=== PATIENT | male | born 1970 | race African-American/Black ===

== ENCOUNTER 2016-07-28 16:12 | Inpatient (IN) | payer BC, MEDICAID ==
[~2016-07-28 16:12] MED LIST: ACETAMINOPHEN500 M4 PO; ACYCLOVIR800 MG PO; ALLOPURINOL300 MG PO; AMBIEN5 MG PO; COLACE-T100 MG PO; COLACE100 MG PO; COMPAZINE10 M PO; DIFLUCAN100 MG PO; ENSURE HIGH PR237 ML PO; HYDROCODON-ACE1 EA16 PO; INDERAL10 MG PO; LASIX40 MG PO; LOSARTAN-HCTZ1 EAC4 PO; MIRALAX17 G1 PO; OXYCODONE HCL5 MG PO; REGLAN10 M1 PO; RITUXAN100 MG/10; TUSSIN100 MG/52 PO; VENTOLIN HFA18 G1 IH; XANAX0.5 M1 PO; ZESTRIL5 MG PO; ZOFRAN8 M1 PO; ZOFRAN8 MG PO; [UNRECOGNIZED DRUG - OTHER] PO
[2016-07-28] MEDS ORDERED: FLOMAX0.4 M1 PO (16:59)
[2016-07-28 17:04] LABS: INR 1.4 INR (0.9-1.1); PROTHROMBIN TIME 16.4 SECONDS (9.0-13.6)
[2016-07-28 17:04] LABS: BASO % 0.6 % (0-2); EOSINOPHIL ABSOLUTE COUNT 0.1 tho/cmm (0.0-0.7); HCT-HEMATOCRIT 25.5 % (36.0-53.5); HGB-HEMOGLOBIN 8.6 gm/dl (13.5-17.0); IMMATURE GRANULOCYTES ABSOLUTE 0.02 tho/cmm (0-0.03); IMMATURE GRANULOCYTES PERCENT 1.2 % (0-0.3); LYMPH % 19.3 % (20-45); LYMPH ABSOLUTE COUNT 0.3 tho/cmm (0.8-4.5); MCH (MEAN CORPUSCULAR HGB) 30.7 pg (28.0-32.0); MCHC MEAN CORPUSCULAR HGB CONC 33.7 % (32.0-36.0); MCV (MEAN CELL VOLUME) 91.1 fl (82.0-96.0); MEAN PLATELET VOLUME 11.7 cmc (9.4-12.4); MONO % 8.7 % (0-12); MONOCYTE ABSOLUTE COUNT 0.1 tho/cmm (0.0-1.2); NEUTROPHIL ABSOLUTE COUNT 1.1 tho/cmm (1.6-8.0); NEUTROPHIL-AUTOMATED 1.1 tho/cmm (1.6-8.0); NEUTROPHILS % 65.2 % (40-80); PLATELET COUNT 76 tho/cmm (150-450); RED CELL DISTRIBUTION WIDTH 16.9 % (12.4-16.4)
[2016-07-28] MEDS ORDERED: BARACLUDE PO (17:05)
[2016-07-28 17:07] LABS: WHITE BLOOD COUNT 1.6 tho/cmm (4.0-10.0)
[2016-07-28] MEDS ORDERED: CHERATUSSIN AC118 M1 PO (17:08)
[2016-07-28] MEDS ORDERED: TREANDA IV (17:10)
[2016-07-28] MEDS ORDERED: ACETAMINOPHEN650 M4 PO (17:11)
[2016-07-28] MEDS ORDERED: NEULASTA6 MG/0.6 M SC (17:12)
[2016-07-28] MEDS ORDERED: ALOXI0.25 MG/5 IV ×2 (17:13→17:15)
[2016-07-28] MEDS ORDERED: GRANISETRON IV (17:14)
[2016-07-28] MEDS ORDERED: DIPHENHYDR50 MG/1 M2 IV (17:15)
[2016-07-28] MEDS ORDERED: NEULASTA6 MG/0.61 SC (17:15)
[2016-07-28 17:20] LABS: ALB/GLOB RATIO 0.3 (0.8-2.0); ALBUMIN 2.7 g/dl (3.5-5.0); ALKALINE PHOSPHATASE 680 U/L (33-138); ALT/SGPT 48 U/L (12-78); ANION GAP 16 mmol/L (0-20); AST/SGOT 41 U/L (10-40); BILIRUBIN,TOTAL 0.6 mg/dl (0.0-1.5); BLOOD UREA NITROGEN 22 mg/dl (6-24); CALCIUM 8.2 mg/dl (8.5-10.5); CARBON DIOXIDE-VENOUS 18 mmol/L (22-32); CHLORIDE 108 mmol/l (96-110); CREATININE 1.65 mg/dl (0.60-1.30); GLUCOSE 92 mg/dL (70-110); POTASSIUM 3.7 mmol/L (3.7-5.1); SODIUM 138 mmol/L (135-145); eGFR VALUE FOR BLACK 56 mL/Min
[2016-07-28 22:20] LABS: ABG CO2 ARTERIAL 15 mmol/L (21-27); ARTERIAL BLD GAS O2 SATURATION 98 % (95-98); ARTERIAL BLOOD GAS PCO2 22 mmHg (32-45); ARTERIAL PO2 107 mmHg (70-100); BICARBONATE 14 mmol/L (21-28); BLOOD GAS BASE EXCESS -9 mM/L (-/+3); PH 7.43 Units (7.35-7.45)
[2016-07-28 23:20] LABS: PROCALCITONIN 78.14 ng/ml (0.05-0.09)
[2016-07-29 00:45] LABS: ANION GAP 13 mmol/L (0-20); BLOOD UREA NITROGEN 26 mg/dl (6-24); CARBON DIOXIDE-VENOUS 16 mmol/L (22-32); CHLORIDE 112 mmol/l (96-110); GLUCOSE 94 mg/dL (70-110); POTASSIUM 3.6 mmol/L (3.7-5.1); SODIUM 137 mmol/L (135-145)
[2016-07-29 00:50] LABS: CALCIUM 6.5 mg/dl (8.5-10.5); CREATININE 2.64 mg/dl (0.60-1.30); eGFR VALUE FOR BLACK 32 mL/Min
[2016-07-29 03:43] LABS: ABG CO2 ARTERIAL 16 mmol/L (21-27); ARTERIAL BLD GAS O2 SATURATION 96 % (95-98); ARTERIAL BLOOD GAS PCO2 23 mmHg (32-45); ARTERIAL PO2 73 mmHg (70-100); BICARBONATE 15 mmol/L (21-28); BLOOD GAS BASE EXCESS -8 mM/L (-/+3); PH 7.44 Units (7.35-7.45)
[2016-07-29 05:14] LABS: HGB-HEMOGLOBIN 6.7 gm/dl (13.5-17.0); MCH (MEAN CORPUSCULAR HGB) 31.2 pg (28.0-32.0); MCV (MEAN CELL VOLUME) 91.6 fl (82.0-96.0); MEAN PLATELET VOLUME 11.4 cmc (9.4-12.4); NEUTROPHIL-AUTOMATED 1.6 tho/cmm (1.6-8.0); PLATELET COUNT 68 tho/cmm (150-450); RED BLOOD COUNT 2.15 mil/cmm (4.40-5.70); RED CELL DISTRIBUTION WIDTH 17.3 % (12.4-16.4); WHITE BLOOD COUNT 2.2 tho/cmm (4.0-10.0)
[2016-07-29 05:17] LABS: BASO % 0.5 % (0-2); EOS % 4.1 % (0-7); EOSINOPHIL ABSOLUTE COUNT 0.1 tho/cmm (0.0-0.7); HCT-HEMATOCRIT 19.7 % (36.0-53.5); IMMATURE GRANULOCYTES ABSOLUTE 0.18 tho/cmm (0-0.03); IMMATURE GRANULOCYTES PERCENT 8.2 % (0-0.3); LYMPH ABSOLUTE COUNT 0.2 tho/cmm (0.8-4.5); MONO % 4.1 % (0-12); MONOCYTE ABSOLUTE COUNT 0.1 tho/cmm (0.0-1.2); NEUTROPHIL ABSOLUTE COUNT 1.6 tho/cmm (1.6-8.0); NEUTROPHILS % 73.1 % (40-80)
[2016-07-29 05:26] LABS: ALB/GLOB RATIO 0.3 (0.8-2.0); ALBUMIN 1.9 g/dl (3.5-5.0); ALT/SGPT 41 U/L (12-78); ANION GAP 16 mmol/L (0-20); AST/SGOT 59 U/L (10-40); BILIRUBIN,DIRECT 0.5 mg/dl (0.0-0.3); BILIRUBIN,INDIRECT 0.2 mg/dL (0.0-1.0); BILIRUBIN,TOTAL 0.7 mg/dl (0.0-1.5); BLOOD UREA NITROGEN 30 mg/dl (6-24); CALCIUM 6.7 mg/dl (8.5-10.5); CARBON DIOXIDE-VENOUS 15 mmol/L (22-32); CHLORIDE 111 mmol/l (96-110); GLUCOSE 92 mg/dL (70-110); MAGNESIUM 0.8 mg/dl (1.8-2.6); PHOSPHOROUS 2.1 mg/dl (2.5-4.9); POTASSIUM 3.6 mmol/L (3.7-5.1); SODIUM 138 mmol/L (135-145)
[2016-07-29 05:27] LABS: ALKALINE PHOSPHATASE 429 U/L (33-138); CREATININE 3.32 mg/dl (0.60-1.30); eGFR VALUE FOR BLACK 24 mL/Min
[2016-07-29 05:38] LABS: ALCOHOL (ETOH) <10 mg/dl (<10)
[2016-07-29 05:40] LABS: ACETAMINOPHEN LEVEL <3 ug/ml (10-30); SALICYLATE <3 mg/dl (2.8-20)
[2016-07-29 06:22] LABS: OSMOLALITY 286 mOsm/kg (275-295)
[2016-07-29 06:54] LABS: URINE BILIRUBIN SMALL (NEG); URINE BLOOD LARGE (NEG); URINE GLUCOSE (UA) NEGATIVE (NEG); URINE KETONE SMALL (NEG); URINE LEUKOCYTE ESTERASE POSITIVE (NEG); URINE NITRITE NEGATIVE (NEG); URINE PROTEIN MODERATE (NEG); URINE SPECIFIC GRAVITY 1.015 (1.003-1.030)
[2016-07-29 06:55] LABS: URINE APPEARANCE CLOUDY; URINE COLOR YELLOW
[2016-07-29 07:15] LABS: URINE BACTERIA 2+
[2016-07-29 07:16] LABS: URINE MUCUS 1+
[2016-07-29 07:17] LABS: URINE AMORPHOUS 4+
[2016-07-29 10:17] LABS: ANION GAP 18 mmol/L (0-20); BLOOD UREA NITROGEN 34 mg/dl (6-24); CALCIUM 6.6 mg/dl (8.5-10.5); CARBON DIOXIDE-VENOUS 16 mmol/L (22-32); CHLORIDE 110 mmol/l (96-110); CREATININE 3.53 mg/dl (0.60-1.30); GLUCOSE 88 mg/dL (70-110); MAGNESIUM 1.5 mg/dl (1.8-2.6); POTASSIUM 3.8 mmol/L (3.7-5.1); SODIUM 140 mmol/L (135-145); eGFR VALUE FOR BLACK 23 mL/Min
[2016-07-29 16:35] LABS: ANION GAP 19 mmol/L (0-20); BLOOD UREA NITROGEN 39 mg/dl (6-24); CARBON DIOXIDE-VENOUS 16 mmol/L (22-32); CHLORIDE 108 mmol/l (96-110); CREATININE 4.02 mg/dl (0.60-1.30); GLUCOSE 93 mg/dL (70-110); MAGNESIUM 1.5 mg/dl (1.8-2.6); PHOSPHOROUS 3.9 mg/dl (2.5-4.9); POTASSIUM 3.7 mmol/L (3.7-5.1); SODIUM 139 mmol/L (135-145); eGFR VALUE FOR BLACK 19 mL/Min
--- NOTE | 2016-07-29 19:00 | NUR ---
0830: PATIENT IS RESTLESS AND TRIES TO SIT UP FREQUENTLY. HAVING LIQUID GREEN STOOLS. DOESN'T USE URINAL. C/O "HARD TO BREATH", RESP. 40'S AND USES ACCESSORY MUSCLES. AND FAMILY @ BEDSIDE. DR. OJEDA GIVEN UPDATE OF CONDITION. MAGNESIUM AND CALCIUM GLUTANATE INFUSING. ALBUMIN AND NS BOLUSES HAVE BEEN GIVEN. SBP>90 AND MAP >65. LEVOPHED @ 0.02MCG/KG/MIN. 0845 DR. BULLARD HERE , GIVEN CONDITION UPDATE AND ORDERS RECIEVED. 0930: LABS DRAWN. NO CHANGE IN RESPIRATORY STATUS. MONITOR SHOWS SINUS TACH RATE 120'S WITH TEMPERATURE OF 39.5 DESPITE TYLENOL GIVEN AND ICE PACKS TO TORSO. 0945 DR. MCDONALD HERE AND GIVEN CONDITION UPDATE. PT. RESTLESS FOR BRIEF PERIODS AND THEN SLEEPS BRIEFLY. FAMILY @ BEDSIDE. PRBC INFUSING. 1030 LAB RESULTS CALLED TO DR. BULLARD AND ORDERS RECIEVED. REMAINS RESTLESS AND TACHYPNEIC. TEMP 39.5. 1200 NO CHANGE IN CONDITION EXCEPT C/O ABD. CRAMPING AND LUQ TENDERNESS. DENIES EPIGASTRIC BURNING OR NAUSEA. TITRATING LEVOPHED UP FOR MAP< 65. TEMP 39.5, REMAINS TACYPNEIC AND TACHYCARDIA RATE 120'S. DR. OJEDA GIVEN CONDITION UPDATE AND ORDERS RECIEVED. COOLING BLANKET PLACED UNDER PATIENT. 1330 MORE LETHARGIC, USING RESP. ACCESSORY MUSCLES MORE. FAMILY HERE VISITING- CONVERSES APPROPRIATELY WITH FAMILY. MAGNESIUM AND CALCIUM REPLACEMENTS INFUSING. DR. MCDONALD PAGED, COMES TO SEE PATIENT. PRECEDEX DRIP STARTED FOR RESTLESSNESS. PLACED ON HEATED HI-FLOW FOR COMFORT BY RESP. THERAPIST. 1500 CONTINUES TO HAVE FREQUENT DIARRHEA-UP TO COMMODE FREQUENTLY. SBP <90, HR 120, RESP. 40'S, TEMPERATURE 37.6 WHILE ON COOLING BLANKET. SLEEPS FOR SHORT PERIODS. TITRAING PRECEDEX DOWN DUE TO LOW BP. NO OVBVIOUS URINE OUTPUT, PT. STATES HAS URINATED WITH STOOL. REFUSES REY CATHETER. NO URGE TO VOID. 1600 DR. MCDONALD HERE, GIVEN CONDITION UPDATE AND TALKS WITH PT. AND FAMILY. NO ORDERS RECIEVED. C/O LUQ ABD PAIN. SITS UP FREQUENTLY AND RUBS STOMACH. 1640 RESP. SLOWING SLIGHTLY, DR. ARRIAGA AND HARRY NOTIFIED OF ABD. PAIN AND HYPOTENSION WITH INCREASE OF LEVOPHED. ARTERIAL LINE STARTED BY RESP. THERAPY PER DR. MCDONALD'S ORDER. FENTANYL 25 MCG IVP GIVEN FOR C/O ABD. PAIN. 1699 DOESN'T TOLERATE BIPAP, "CAN'T GET ENOUGH AIR." LAB RESULTS CALLED TO DR. HUMMEL AND ORDERS RECIEVED. 1729 DR. MCDONALD NOTIFIED OF BIPAP FAILURE, PT. BACK ON HEATED HI-FLOW 40L AND 30% FIO2. PRECEDEX @0.4MCG/KG/MIN AND CONTINUE TO TIRATE LEVOPHED UP FOR MAP> 65. PT. RESTING MORE QUIETLY, RESP. HIGH 30'S AND USING ACCESSORY MUSCLES OF ABD. AND FACE. 1829 NO CHANGE IN CONDITION. CALCIUM GLUCONATE AND MAGNESIUM STARTED. PT. SLEEPING, NO LIQUID STOOL SINCE 1629. TACHYPNEIC AND TACHYCARDIC. 1029 LAB RESULTS CALLED TO DR. BULLARD. OR
[2016-07-29 19:19] LABS: ABG CO2 ARTERIAL 15 mmol/L (21-27); ARTERIAL BLD GAS O2 SATURATION 99 % (95-98); ARTERIAL BLOOD GAS PCO2 23 mmHg (32-45); BICARBONATE 15 mmol/L (21-28); BLOOD GAS BASE EXCESS -8 mM/L (-/+3); PH 7.43 Units (7.35-7.45)
[2016-07-29 19:20] LABS: ARTERIAL PO2 122 mmHg (70-100)
[2016-07-30 05:56] LABS: HGB-HEMOGLOBIN 6.9 gm/dl (13.5-17.0); MCH (MEAN CORPUSCULAR HGB) 30.5 pg (28.0-32.0); MEAN PLATELET VOLUME 11.3 cmc (9.4-12.4); NEUTROPHIL-AUTOMATED 3.9 tho/cmm (1.6-8.0); PLATELET COUNT 69 tho/cmm (150-450); RED BLOOD COUNT 2.26 mil/cmm (4.40-5.70); RED CELL DISTRIBUTION WIDTH 18.1 % (12.4-16.4)
[2016-07-30 05:57] LABS: HCT-HEMATOCRIT 19.5 % (36.0-53.5); MCHC MEAN CORPUSCULAR HGB CONC 35.4 % (32.0-36.0); MCV (MEAN CELL VOLUME) 86.3 fl (82.0-96.0); WHITE BLOOD COUNT 5.5 tho/cmm (4.0-10.0)
[2016-07-30 06:14] LABS: ALB/GLOB RATIO 0.4 (0.8-2.0); ALBUMIN 2.2 g/dl (3.5-5.0); ALKALINE PHOSPHATASE 307 U/L (33-138); ALT/SGPT 43 U/L (12-78); ANION GAP 18 mmol/L (0-20); AST/SGOT 30 U/L (10-40); BLOOD UREA NITROGEN 48 mg/dl (6-24); CALCIUM 7.1 mg/dl (8.5-10.5); CARBON DIOXIDE-VENOUS 18 mmol/L (22-32); CHLORIDE 103 mmol/l (96-110); CREATININE 4.77 mg/dl (0.60-1.30); POTASSIUM 3.4 mmol/L (3.7-5.1); SODIUM 136 mmol/L (135-145); eGFR VALUE FOR BLACK 16 mL/Min
[2016-07-30 06:15] LABS: BILIRUBIN,TOTAL 2.4 mg/dl (0.0-1.5); GLUCOSE 148 mg/dL (70-110); MAGNESIUM 2.6 mg/dl (1.8-2.6); PHOSPHOROUS 5.7 mg/dl (2.5-4.9)
[2016-07-30 08:04] LABS: BAND % 29 % (0-20); BAND ABSOLUTE COUNT 1.6 tho/cmm (0-2.0); BASOPHIL % 1 % (0-2); BASOPHIL ABSOLUTE COUNT 0.1 tho/cmm (0.0-0.2); EOSINOPHIL % 9 % (0-7)
--- NOTE | 2016-07-30 19:04 | NUR ---
1205: BLOOD INFUSION COMPLETE. VS 1245: PATIENT REPORTING INCREASED DIFFICULTY BREATHING W/ ABDOMINAL DISCOMFORT/FULLNESS. PATIENT WHEEZING, RESPIRATORY RATE IN 30-40S, INCREASED WORK OF BREATHING. RT NOTIFIED, PATIENT GIVEN PRN TREATMENT. SBP UP TO 140S, LEVOPHED TURNED OFF. PATIENT INCREASINGLY ANXIOUS AND AGITATED. RN GAVE 2MG IV ATIVAN PER ALCOHOL WITHDRAWAL PROTOCOL. DR MCDONALD NOTIFIED, RN CONTACTED CONTACTED BLOOD BANK FOR POSSIBLE TRANSFUSION REACTION PER DR. MCDONALD RECOMMENDATION. SAMANTHA IN BLOOD BANK CONTACTED AND NOTIFIED OF SITUATION, PATIENT SYMPTOMS AND VITAL SIGNS, SAMANTHA CONTACTED PATHOLOGY MD AND ADVISED THERE WAS NO TRANSFUSION REACTION. \ TRANSFUSION REACTION
[2016-07-31 00:21] LABS: ABG CO2 ARTERIAL 26 mmol/L (21-27); ARTERIAL BLD GAS O2 SATURATION 95 % (95-98); ARTERIAL BLOOD GAS PCO2 39 mmHg (32-45); ARTERIAL PO2 72 mmHg (70-100); BICARBONATE 25 mmol/L (21-28); BLOOD GAS BASE EXCESS 1 mM/L (-/+3); PH 7.43 Units (7.35-7.45)
[2016-07-31 05:21] LABS: ABG CO2 ARTERIAL 28 mmol/L (21-27); ARTERIAL BLD GAS O2 SATURATION 98 % (95-98); ARTERIAL BLOOD GAS PCO2 39 mmHg (32-45); BICARBONATE 27 mmol/L (21-28); BLOOD GAS BASE EXCESS 3 mM/L (-/+3); PH 7.45 Units (7.35-7.45)
[2016-07-31 05:21] LABS: HGB-HEMOGLOBIN 7.2 gm/dl (13.5-17.0); MCH (MEAN CORPUSCULAR HGB) 30.1 pg (28.0-32.0); MCV (MEAN CELL VOLUME) 84.9 fl (82.0-96.0); MEAN PLATELET VOLUME 10.5 cmc (9.4-12.4); NEUTROPHIL-AUTOMATED 2.4 tho/cmm (1.6-8.0); PLATELET COUNT 51 tho/cmm (150-450); RED BLOOD COUNT 2.39 mil/cmm (4.40-5.70); WHITE BLOOD COUNT 3.3 tho/cmm (4.0-10.0)
[2016-07-31 05:22] LABS: ARTERIAL PO2 91 mmHg (70-100)
[2016-07-31 05:24] LABS: EOS % 10.8 % (0-7); EOSINOPHIL ABSOLUTE COUNT 0.4 tho/cmm (0.0-0.7); HCT-HEMATOCRIT 20.3 % (36.0-53.5); IMMATURE GRANULOCYTES ABSOLUTE 0.26 tho/cmm (0-0.03); IMMATURE GRANULOCYTES PERCENT 7.8 % (0-0.3); LYMPH % 3.9 % (20-45); LYMPH ABSOLUTE COUNT 0.1 tho/cmm (0.8-4.5); MCHC MEAN CORPUSCULAR HGB CONC 35.5 % (32.0-36.0); MONO % 6.9 % (0-12); MONOCYTE ABSOLUTE COUNT 0.2 tho/cmm (0.0-1.2); NEUTROPHIL ABSOLUTE COUNT 2.4 tho/cmm (1.6-8.0); NEUTROPHILS % 70.6 % (40-80)
[2016-07-31 05:43] LABS: ALB/GLOB RATIO 0.4 (0.8-2.0); ALBUMIN 2.4 g/dl (3.5-5.0); ALKALINE PHOSPHATASE 290 U/L (33-138); ALT/SGPT 36 U/L (12-78); ANION GAP 16 mmol/L (0-20); AST/SGOT 17 U/L (10-40); BILIRUBIN,TOTAL 3.1 mg/dl (0.0-1.5); BLOOD UREA NITROGEN 58 mg/dl (6-24); CALCIUM 6.8 mg/dl (8.5-10.5); CARBON DIOXIDE-VENOUS 26 mmol/L (22-32); CHLORIDE 95 mmol/l (96-110); CREATININE 5.26 mg/dl (0.60-1.30); GLUCOSE 118 mg/dL (70-110); MAGNESIUM 2.6 mg/dl (1.8-2.6); PHOSPHOROUS 6.7 mg/dl (2.5-4.9); POTASSIUM 3.1 mmol/L (3.7-5.1); SODIUM 134 mmol/L (135-145); eGFR VALUE FOR BLACK 14 mL/Min
[2016-07-31 05:59] LABS: INR 1.9 INR (0.9-1.1); PROTHROMBIN TIME 21.9 SECONDS (9.0-13.6)
[2016-07-31 18:42] LABS: ANION GAP 17 mmol/L (0-20); BLOOD UREA NITROGEN 62 mg/dl (6-24); CALCIUM 6.9 mg/dl (8.5-10.5); CARBON DIOXIDE-VENOUS 27 mmol/L (22-32); CHLORIDE 96 mmol/l (96-110); CREATININE 5.32 mg/dl (0.60-1.30); GLUCOSE 108 mg/dL (70-110); POTASSIUM 3.4 mmol/L (3.7-5.1); SODIUM 137 mmol/L (135-145); eGFR VALUE FOR BLACK 14 mL/Min
[2016-08-01 04:11] LABS: BASO % 0.6 % (0-2); EOSINOPHIL ABSOLUTE COUNT 0.6 tho/cmm (0.0-0.7); HGB-HEMOGLOBIN 7.9 gm/dl (13.5-17.0); IMMATURE GRANULOCYTES ABSOLUTE 0.06 tho/cmm (0-0.03); IMMATURE GRANULOCYTES PERCENT 1.8 % (0-0.3); LYMPH % 4.2 % (20-45); LYMPH ABSOLUTE COUNT 0.1 tho/cmm (0.8-4.5); MCH (MEAN CORPUSCULAR HGB) 30.3 pg (28.0-32.0); MCV (MEAN CELL VOLUME) 85.8 fl (82.0-96.0); MEAN PLATELET VOLUME 11.8 cmc (9.4-12.4); MONO % 10.9 % (0-12); MONOCYTE ABSOLUTE COUNT 0.4 tho/cmm (0.0-1.2); NEUTROPHIL ABSOLUTE COUNT 2.1 tho/cmm (1.6-8.0); NEUTROPHIL-AUTOMATED 2.1 tho/cmm (1.6-8.0); NEUTROPHILS % 64.7 % (40-80); PLATELET COUNT 59 tho/cmm (150-450); RED BLOOD COUNT 2.61 mil/cmm (4.40-5.70); RED CELL DISTRIBUTION WIDTH 17.3 % (12.4-16.4); WHITE BLOOD COUNT 3.3 tho/cmm (4.0-10.0)
[2016-08-01 04:13] LABS: EOS % 17.8 % (0-7); HCT-HEMATOCRIT 22.4 % (36.0-53.5); MCHC MEAN CORPUSCULAR HGB CONC 35.3 % (32.0-36.0)
[2016-08-01 04:22] LABS: ALBUMIN 2.6 g/dl (3.5-5.0); ANION GAP 14 mmol/L (0-20); BLOOD UREA NITROGEN 63 mg/dl (6-24); CALCIUM 7.2 mg/dl (8.5-10.5); CARBON DIOXIDE-VENOUS 28 mmol/L (22-32); CHLORIDE 100 mmol/l (96-110); CREATININE 5.31 mg/dl (0.60-1.30); GLUCOSE 82 mg/dL (70-110); MAGNESIUM 2.7 mg/dl (1.8-2.6); PHOSPHOROUS 4.6 mg/dl (2.5-4.9); POTASSIUM 3.5 mmol/L (3.7-5.1); SODIUM 138 mmol/L (135-145); eGFR VALUE FOR BLACK 14 mL/Min
[2016-08-01 04:41] LABS: ABG CO2 ARTERIAL 28 mmol/L (21-27); ARTERIAL BLD GAS O2 SATURATION 97 % (95-98); ARTERIAL BLOOD GAS PCO2 38 mmHg (32-45); BICARBONATE 27 mmol/L (21-28); BLOOD GAS BASE EXCESS 3 mM/L (-/+3); PH 7.46 Units (7.35-7.45)
[2016-08-01 04:42] LABS: ARTERIAL PO2 80 mmHg (70-100)
[2016-08-01 05:13] LABS: PROCALCITONIN 87.38 ng/ml (0.05-0.09)
[2016-08-01 06:17] LABS: PROCALCITONIN 93.87 ng/ml (0.05-0.09)
[2016-08-02 04:13] LABS: ABG CO2 ARTERIAL 25 mmol/L (21-27); ARTERIAL BLOOD GAS PCO2 36 mmHg (32-45); BICARBONATE 24 mmol/L (21-28); BLOOD GAS BASE EXCESS 1 mM/L (-/+3); PH 7.44 Units (7.35-7.45)
[2016-08-02 04:16] LABS: ARTERIAL PO2 48 mmHg (70-100)
[2016-08-02 04:17] LABS: ARTERIAL BLD GAS O2 SATURATION 82 % (95-98)
[2016-08-02 04:35] LABS: BASO ABSOLUTE COUNT 0.1 tho/cmm (0.0-0.2); EOS % 13.2 % (0-7); EOSINOPHIL ABSOLUTE COUNT 0.7 tho/cmm (0.0-0.7); HGB-HEMOGLOBIN 7.7 gm/dl (13.5-17.0); IMMATURE GRANULOCYTES ABSOLUTE 0.03 tho/cmm (0-0.03); IMMATURE GRANULOCYTES PERCENT 0.6 % (0-0.3); LYMPH % 10.5 % (20-45); LYMPH ABSOLUTE COUNT 0.6 tho/cmm (0.8-4.5); MCH (MEAN CORPUSCULAR HGB) 30.6 pg (28.0-32.0); MCV (MEAN CELL VOLUME) 88.9 fl (82.0-96.0); MEAN PLATELET VOLUME 11.6 cmc (9.4-12.4); MONO % 13.5 % (0-12); MONOCYTE ABSOLUTE COUNT 0.7 tho/cmm (0.0-1.2); NEUTROPHIL ABSOLUTE COUNT 3.2 tho/cmm (1.6-8.0); NEUTROPHIL-AUTOMATED 3.2 tho/cmm (1.6-8.0); NEUTROPHILS % 61.2 % (40-80); PLATELET COUNT 65 tho/cmm (150-450); RED BLOOD COUNT 2.52 mil/cmm (4.40-5.70); RED CELL DISTRIBUTION WIDTH 17.3 % (12.4-16.4)
[2016-08-02 04:41] LABS: ANION GAP 17 mmol/L (0-20); BLOOD UREA NITROGEN 61 mg/dl (6-24); CALCIUM 7.7 mg/dl (8.5-10.5); CARBON DIOXIDE-VENOUS 23 mmol/L (22-32); CHLORIDE 106 mmol/l (96-110); CREATININE 5.15 mg/dl (0.60-1.30); GLUCOSE 83 mg/dL (70-110); MAGNESIUM 2.6 mg/dl (1.8-2.6); PHOSPHOROUS 2.6 mg/dl (2.5-4.9); POTASSIUM 3.4 mmol/L (3.7-5.1); SODIUM 143 mmol/L (135-145); eGFR VALUE FOR BLACK 14 mL/Min
[2016-08-02 05:32] LABS: HCT-HEMATOCRIT 22.4 % (36.0-53.5); MCHC MEAN CORPUSCULAR HGB CONC 34.4 % (32.0-36.0); WHITE BLOOD COUNT 5.2 tho/cmm (4.0-10.0)
[2016-08-03 03:36] LABS: BASO % 0.6 % (0-2); EOS % 13.7 % (0-7); EOSINOPHIL ABSOLUTE COUNT 0.5 tho/cmm (0.0-0.7); HGB-HEMOGLOBIN 7.2 gm/dl (13.5-17.0); IMMATURE GRANULOCYTES ABSOLUTE 0.01 tho/cmm (0-0.03); IMMATURE GRANULOCYTES PERCENT 0.3 % (0-0.3); LYMPH % 19.1 % (20-45); LYMPH ABSOLUTE COUNT 0.6 tho/cmm (0.8-4.5); MCV (MEAN CELL VOLUME) 90.8 fl (82.0-96.0); MEAN PLATELET VOLUME 12.1 cmc (9.4-12.4); MONO % 8.1 % (0-12); MONOCYTE ABSOLUTE COUNT 0.3 tho/cmm (0.0-1.2); NEUTROPHILS % 58.2 % (40-80); PLATELET COUNT 62 tho/cmm (150-450); RED CELL DISTRIBUTION WIDTH 17.6 % (12.4-16.4); WHITE BLOOD COUNT 3.4 tho/cmm (4.0-10.0)
[2016-08-03 03:37] LABS: HCT-HEMATOCRIT 21.8 % (36.0-53.5)
[2016-08-03 03:40] LABS: ALB/GLOB RATIO 0.6 (0.8-2.0); ALBUMIN 3.2 g/dl (3.5-5.0); ALKALINE PHOSPHATASE 282 U/L (33-138); ALT/SGPT 33 U/L (12-78); ANION GAP 13 mmol/L (0-20); AST/SGOT 21 U/L (10-40); BILIRUBIN,TOTAL 2.1 mg/dl (0.0-1.5); BLOOD UREA NITROGEN 58 mg/dl (6-24); CALCIUM 8.3 mg/dl (8.5-10.5); CARBON DIOXIDE-VENOUS 26 mmol/L (22-32); CHLORIDE 114 mmol/l (96-110); CREATININE 4.68 mg/dl (0.60-1.30); MAGNESIUM 2.5 mg/dl (1.8-2.6); PHOSPHOROUS 2.2 mg/dl (2.5-4.9); POTASSIUM 3.7 mmol/L (3.7-5.1); PREALBUMIN 8.2 mg/dl (20.0-40.0); SODIUM 149 mmol/L (135-145); eGFR VALUE FOR BLACK 16 mL/Min
[2016-08-03 03:42] LABS: GLUCOSE 146 mg/dL (70-110)
[2016-08-04 04:29] LABS: ANION GAP 12 mmol/L (0-20); BLOOD UREA NITROGEN 52 mg/dl (6-24); CARBON DIOXIDE-VENOUS 24 mmol/L (22-32); CHLORIDE 110 mmol/l (96-110); CREATININE 3.84 mg/dl (0.60-1.30); GLUCOSE 149 mg/dL (70-110); PHOSPHOROUS 2.7 mg/dl (2.5-4.9); POTASSIUM 3.8 mmol/L (3.7-5.1); SODIUM 142 mmol/L (135-145); eGFR VALUE FOR BLACK 20 mL/Min
[2016-08-04 05:15] LABS: BASO % 0.3 % (0-2); EOS % 8.9 % (0-7); EOSINOPHIL ABSOLUTE COUNT 0.3 tho/cmm (0.0-0.7); HGB-HEMOGLOBIN 6.5 gm/dl (13.5-17.0); IMMATURE GRANULOCYTES ABSOLUTE 0.02 tho/cmm (0-0.03); IMMATURE GRANULOCYTES PERCENT 0.6 % (0-0.3); LYMPH % 15.8 % (20-45); LYMPH ABSOLUTE COUNT 0.6 tho/cmm (0.8-4.5); MCH (MEAN CORPUSCULAR HGB) 30.4 pg (28.0-32.0); MCV (MEAN CELL VOLUME) 92.1 fl (82.0-96.0); MONO % 6.4 % (0-12); MONOCYTE ABSOLUTE COUNT 0.2 tho/cmm (0.0-1.2); NEUTROPHIL ABSOLUTE COUNT 2.5 tho/cmm (1.6-8.0); NEUTROPHIL-AUTOMATED 2.5 tho/cmm (1.6-8.0); PLATELET COUNT 51 tho/cmm (150-450); RED BLOOD COUNT 2.14 mil/cmm (4.40-5.70); RED CELL DISTRIBUTION WIDTH 17.7 % (12.4-16.4); WHITE BLOOD COUNT 3.6 tho/cmm (4.0-10.0)
[2016-08-04 05:19] LABS: HCT-HEMATOCRIT 19.7 % (36.0-53.5)
[2016-08-05 05:19] LABS: BASO % 0.3 % (0-2); EOSINOPHIL ABSOLUTE COUNT 0.2 tho/cmm (0.0-0.7); HGB-HEMOGLOBIN 7.2 gm/dl (13.5-17.0); IMMATURE GRANULOCYTES ABSOLUTE 0.01 tho/cmm (0-0.03); IMMATURE GRANULOCYTES PERCENT 0.3 % (0-0.3); LYMPH % 19.4 % (20-45); LYMPH ABSOLUTE COUNT 0.7 tho/cmm (0.8-4.5); MCH (MEAN CORPUSCULAR HGB) 30.1 pg (28.0-32.0); MCV (MEAN CELL VOLUME) 89.5 fl (82.0-96.0); MONO % 4.2 % (0-12); MONOCYTE ABSOLUTE COUNT 0.1 tho/cmm (0.0-1.2); NEUTROPHIL ABSOLUTE COUNT 2.3 tho/cmm (1.6-8.0); NEUTROPHIL-AUTOMATED 2.3 tho/cmm (1.6-8.0); NEUTROPHILS % 69.8 % (40-80); RED BLOOD COUNT 2.39 mil/cmm (4.40-5.70); RED CELL DISTRIBUTION WIDTH 18.8 % (12.4-16.4); WHITE BLOOD COUNT 3.4 tho/cmm (4.0-10.0)
[2016-08-05 05:33] LABS: ANION GAP 15 mmol/L (0-20); BLOOD UREA NITROGEN 59 mg/dl (6-24); CALCIUM 8.2 mg/dl (8.5-10.5); CARBON DIOXIDE-VENOUS 21 mmol/L (22-32); CHLORIDE 112 mmol/l (96-110); CREATININE 3.45 mg/dl (0.60-1.30); GLUCOSE 118 mg/dL (70-110); MAGNESIUM 1.9 mg/dl (1.8-2.6); POTASSIUM 4.1 mmol/L (3.7-5.1); SODIUM 144 mmol/L (135-145); eGFR VALUE FOR BLACK 23 mL/Min
[2016-08-05 05:43] LABS: HCT-HEMATOCRIT 21.4 % (36.0-53.5); MCHC MEAN CORPUSCULAR HGB CONC 33.6 % (32.0-36.0)
[2016-08-05 05:46] LABS: PLATELET COUNT 48 tho/cmm (150-450)
[2016-08-06 05:18] LABS: BASO % 0.4 % (0-2); EOS % 4.1 % (0-7); EOSINOPHIL ABSOLUTE COUNT 0.1 tho/cmm (0.0-0.7); HGB-HEMOGLOBIN 6.8 gm/dl (13.5-17.0); IMMATURE GRANULOCYTES ABSOLUTE 0.01 tho/cmm (0-0.03); IMMATURE GRANULOCYTES PERCENT 0.4 % (0-0.3); LYMPH % 21.1 % (20-45); LYMPH ABSOLUTE COUNT 0.5 tho/cmm (0.8-4.5); MCH (MEAN CORPUSCULAR HGB) 30.1 pg (28.0-32.0); MCV (MEAN CELL VOLUME) 88.9 fl (82.0-96.0); MONO % 4.1 % (0-12); MONOCYTE ABSOLUTE COUNT 0.1 tho/cmm (0.0-1.2); NEUTROPHIL ABSOLUTE COUNT 1.7 tho/cmm (1.6-8.0); NEUTROPHIL-AUTOMATED 1.7 tho/cmm (1.6-8.0); NEUTROPHILS % 69.9 % (40-80); RED BLOOD COUNT 2.26 mil/cmm (4.40-5.70); RED CELL DISTRIBUTION WIDTH 18.6 % (12.4-16.4); WHITE BLOOD COUNT 2.4 tho/cmm (4.0-10.0)
[2016-08-06 05:29] LABS: HCT-HEMATOCRIT 20.1 % (36.0-53.5); MCHC MEAN CORPUSCULAR HGB CONC 33.8 % (32.0-36.0)
[2016-08-06 05:31] LABS: PLATELET COUNT 45 tho/cmm (150-450)
[2016-08-06 05:58] LABS: ANION GAP 14 mmol/L (0-20); BLOOD UREA NITROGEN 63 mg/dl (6-24); CALCIUM 8.2 mg/dl (8.5-10.5); CARBON DIOXIDE-VENOUS 20 mmol/L (22-32); CHLORIDE 113 mmol/l (96-110); CREATININE 3.43 mg/dl (0.60-1.30); GLUCOSE 126 mg/dL (70-110); PHOSPHOROUS 3.9 mg/dl (2.5-4.9); SODIUM 143 mmol/L (135-145); eGFR VALUE FOR BLACK 23 mL/Min
[2016-08-06 17:43] LABS: ABG CO2 ARTERIAL 19 mmol/L (21-27); ARTERIAL BLD GAS O2 SATURATION 89 % (95-98); ARTERIAL BLOOD GAS PCO2 27 mmHg (32-45); ARTERIAL PO2 55 mmHg (70-100); BICARBONATE 18 mmol/L (21-28); BLOOD GAS BASE EXCESS -5 mM/L (-/+3); PH 7.44 Units (7.35-7.45)
[2016-08-07 03:53] LABS: BASO % 0.9 % (0-2); EOS % 4.8 % (0-7); EOSINOPHIL ABSOLUTE COUNT 0.2 tho/cmm (0.0-0.7); HGB-HEMOGLOBIN 7.6 gm/dl (13.5-17.0); IMMATURE GRANULOCYTES ABSOLUTE 0.01 tho/cmm (0-0.03); IMMATURE GRANULOCYTES PERCENT 0.3 % (0-0.3); LYMPH % 12.7 % (20-45); LYMPH ABSOLUTE COUNT 0.4 tho/cmm (0.8-4.5); MCH (MEAN CORPUSCULAR HGB) 30.5 pg (28.0-32.0); MCV (MEAN CELL VOLUME) 89.2 fl (82.0-96.0); MONO % 4.2 % (0-12); MONOCYTE ABSOLUTE COUNT 0.1 tho/cmm (0.0-1.2); NEUTROPHIL ABSOLUTE COUNT 2.6 tho/cmm (1.6-8.0); NEUTROPHIL-AUTOMATED 2.6 tho/cmm (1.6-8.0); NEUTROPHILS % 77.1 % (40-80); PLATELET COUNT 58 tho/cmm (150-450); RED BLOOD COUNT 2.49 mil/cmm (4.40-5.70); RED CELL DISTRIBUTION WIDTH 18.7 % (12.4-16.4); WHITE BLOOD COUNT 3.3 tho/cmm (4.0-10.0)
[2016-08-07 03:55] LABS: ALBUMIN 3.4 g/dl (3.5-5.0); ANION GAP 17 mmol/L (0-20); CALCIUM 7.9 mg/dl (8.5-10.5); CARBON DIOXIDE-VENOUS 19 mmol/L (22-32); CHLORIDE 109 mmol/l (96-110); CREATININE 3.35 mg/dl (0.60-1.30); PHOSPHOROUS 4.5 mg/dl (2.5-4.9); POTASSIUM 3.8 mmol/L (3.7-5.1); SODIUM 141 mmol/L (135-145); eGFR VALUE FOR BLACK 24 mL/Min
[2016-08-07 04:06] LABS: HCT-HEMATOCRIT 22.2 % (36.0-53.5); MCHC MEAN CORPUSCULAR HGB CONC 34.2 % (32.0-36.0)
[2016-08-07 04:37] LABS: GLUCOSE 273 mg/dL (70-110)
[2016-08-07 04:48] LABS: BLOOD UREA NITROGEN 66 mg/dl (6-24)
[2016-08-08 03:28] LABS: BASO % 1.7 % (0-2); BASO ABSOLUTE COUNT 0.1 tho/cmm (0.0-0.2); EOS % 5.7 % (0-7); EOSINOPHIL ABSOLUTE COUNT 0.2 tho/cmm (0.0-0.7); HGB-HEMOGLOBIN 7.8 gm/dl (13.5-17.0); IMMATURE GRANULOCYTES ABSOLUTE 0.04 tho/cmm (0-0.03); IMMATURE GRANULOCYTES PERCENT 1.1 % (0-0.3); LYMPH % 14.9 % (20-45); LYMPH ABSOLUTE COUNT 0.5 tho/cmm (0.8-4.5); MCH (MEAN CORPUSCULAR HGB) 29.9 pg (28.0-32.0); MCV (MEAN CELL VOLUME) 88.1 fl (82.0-96.0); MONO % 8.6 % (0-12); MONOCYTE ABSOLUTE COUNT 0.3 tho/cmm (0.0-1.2); NEUTROPHIL ABSOLUTE COUNT 2.4 tho/cmm (1.6-8.0); NEUTROPHIL-AUTOMATED 2.4 tho/cmm (1.6-8.0); PLATELET COUNT 79 tho/cmm (150-450); RED BLOOD COUNT 2.61 mil/cmm (4.40-5.70); RED CELL DISTRIBUTION WIDTH 18.4 % (12.4-16.4); WHITE BLOOD COUNT 3.5 tho/cmm (4.0-10.0)
[2016-08-08 03:29] LABS: ALBUMIN 3.6 g/dl (3.5-5.0); ANION GAP 14 mmol/L (0-20); BLOOD UREA NITROGEN 61 mg/dl (6-24); CALCIUM 8.4 mg/dl (8.5-10.5); CARBON DIOXIDE-VENOUS 19 mmol/L (22-32); CHLORIDE 116 mmol/l (96-110); CREATININE 3.21 mg/dl (0.60-1.30); PHOSPHOROUS 3.5 mg/dl (2.5-4.9); POTASSIUM 3.8 mmol/L (3.7-5.1); SODIUM 145 mmol/L (135-145); eGFR VALUE FOR BLACK 25 mL/Min
[2016-08-08 03:31] LABS: GLUCOSE 87 mg/dL (70-110)
[2016-08-08 03:35] LABS: MCHC MEAN CORPUSCULAR HGB CONC 33.9 % (32.0-36.0)
[2016-08-09 05:11] LABS: BASO % 1.7 % (0-2); BASO ABSOLUTE COUNT 0.1 tho/cmm (0.0-0.2); EOS % 8.3 % (0-7); EOSINOPHIL ABSOLUTE COUNT 0.3 tho/cmm (0.0-0.7); HGB-HEMOGLOBIN 8.1 gm/dl (13.5-17.0); IMMATURE GRANULOCYTES ABSOLUTE 0.01 tho/cmm (0-0.03); IMMATURE GRANULOCYTES PERCENT 0.3 % (0-0.3); LYMPH % 15.3 % (20-45); LYMPH ABSOLUTE COUNT 0.5 tho/cmm (0.8-4.5); MCH (MEAN CORPUSCULAR HGB) 29.8 pg (28.0-32.0); MCHC MEAN CORPUSCULAR HGB CONC 33.8 % (32.0-36.0); MCV (MEAN CELL VOLUME) 88.2 fl (82.0-96.0); MONO % 6.3 % (0-12); MONOCYTE ABSOLUTE COUNT 0.2 tho/cmm (0.0-1.2); NEUTROPHILS % 68.1 % (40-80); PLATELET COUNT 118 tho/cmm (150-450); RED BLOOD COUNT 2.72 mil/cmm (4.40-5.70)
[2016-08-09 05:36] LABS: ANION GAP 14 mmol/L (0-20); BLOOD UREA NITROGEN 53 mg/dl (6-24); CALCIUM 8.3 mg/dl (8.5-10.5); CARBON DIOXIDE-VENOUS 18 mmol/L (22-32); CHLORIDE 114 mmol/l (96-110); GLUCOSE 109 mg/dL (70-110); POTASSIUM 3.6 mmol/L (3.7-5.1); SODIUM 142 mmol/L (135-145); eGFR VALUE FOR BLACK 26 mL/Min
[2016-08-10 06:27] LABS: BASO % 2.3 % (0-2); BASO ABSOLUTE COUNT 0.1 tho/cmm (0.0-0.2); EOS % 7.6 % (0-7); EOSINOPHIL ABSOLUTE COUNT 0.3 tho/cmm (0.0-0.7); HCT-HEMATOCRIT 25.5 % (36.0-53.5); HGB-HEMOGLOBIN 8.5 gm/dl (13.5-17.0); IMMATURE GRANULOCYTES ABSOLUTE 0.01 tho/cmm (0-0.03); IMMATURE GRANULOCYTES PERCENT 0.3 % (0-0.3); LYMPH % 15.2 % (20-45); LYMPH ABSOLUTE COUNT 0.5 tho/cmm (0.8-4.5); MCH (MEAN CORPUSCULAR HGB) 29.4 pg (28.0-32.0); MCHC MEAN CORPUSCULAR HGB CONC 33.3 % (32.0-36.0); MCV (MEAN CELL VOLUME) 88.2 fl (82.0-96.0); MONO % 8.2 % (0-12); MONOCYTE ABSOLUTE COUNT 0.3 tho/cmm (0.0-1.2); NEUTROPHIL ABSOLUTE COUNT 2.3 tho/cmm (1.6-8.0); NEUTROPHIL-AUTOMATED 2.3 tho/cmm (1.6-8.0); NEUTROPHILS % 66.4 % (40-80); PLATELET COUNT 168 tho/cmm (150-450); RED BLOOD COUNT 2.89 mil/cmm (4.40-5.70); RED CELL DISTRIBUTION WIDTH 17.7 % (12.4-16.4); WHITE BLOOD COUNT 3.4 tho/cmm (4.0-10.0)
[2016-08-10 06:42] LABS: ANION GAP 16 mmol/L (0-20); BLOOD UREA NITROGEN 47 mg/dl (6-24); CALCIUM 8.3 mg/dl (8.5-10.5); CARBON DIOXIDE-VENOUS 18 mmol/L (22-32); CHLORIDE 112 mmol/l (96-110); CREATININE 3.05 mg/dl (0.60-1.30); GLUCOSE 86 mg/dL (70-110); MAGNESIUM 1.9 mg/dl (1.8-2.6); PHOSPHOROUS 2.6 mg/dl (2.5-4.9); POTASSIUM 3.9 mmol/L (3.7-5.1); SODIUM 142 mmol/L (135-145); eGFR VALUE FOR BLACK 27 mL/Min
[2016-08-10] MEDS ORDERED: NORVASC10 M2 PO (18:47)
[2016-08-10] MEDS ORDERED: SODIUM BICARBO650 M1 PO (18:49)
== END 2016-08-10 19:55 | DRG 871 ==
LOC: EDMED 16:12 → EMR2 21:16 → CCU 21:40 → 5WF 08-08 18:00
PROVIDERS: Emergency Medicine; Internal Medicine; Internal Medicine Critical Care Medicine; Internal Medicine Hematology & Oncology; Internal Medicine Nephrology; Internal Medicine Pulmonary Disease; Specialist; ADMIT Family Medicine
PROC: 02HV33Z Insertion of Infusion Device into Superior Vena Cava, Percutaneous Approach (ICD-10-PCS; principal; 2016-07-28)
PROC: 30233N1 Transfusion of Nonautologous Red Blood Cells into Peripheral Vein, Percutaneous Approach (ICD-10-PCS; 2016-07-29)
PROC: 30233N1 Transfusion of Nonautologous Red Blood Cells into Peripheral Vein, Percutaneous Approach (ICD-10-PCS; 2016-07-30)
PROC: 30233N1 Transfusion of Nonautologous Red Blood Cells into Peripheral Vein, Percutaneous Approach (ICD-10-PCS; 2016-07-31)
PROC: 30233N1 Transfusion of Nonautologous Red Blood Cells into Peripheral Vein, Percutaneous Approach (ICD-10-PCS; 2016-08-04)
PROC: 30233N1 Transfusion of Nonautologous Red Blood Cells into Peripheral Vein, Percutaneous Approach (ICD-10-PCS; 2016-08-06)
DX: A41.9 Sepsis, unspecified organism (principal); R65.21 Severe sepsis with septic shock; N17.0 Acute kidney failure with tubular necrosis; J96.01 Acute respiratory failure with hypoxia; G93.40 Encephalopathy, unspecified; F10.231 Alcohol dependence with withdrawal delirium; D70.9 Neutropenia, unspecified; C91.10 Chronic lymphocytic leukemia of B-cell type not having achieved remission; C91.40 Hairy cell leukemia not having achieved remission; K56.7 Ileus, unspecified; I13.0 Hypertensive heart and chronic kidney disease with heart failure and stage 1 through stage 4 chronic kidney disease, or unspecified chronic kidney disease; E87.2 Acidosis; R18.8 Other ascites; E87.0 Hyperosmolality and hypernatremia; R50.81 Fever presenting with conditions classified elsewhere; F12.929 Cannabis use, unspecified with intoxication, unspecified; F17.210 Nicotine dependence, cigarettes, uncomplicated; B19.20 Unspecified viral hepatitis C without hepatic coma; N18.9 Chronic kidney disease, unspecified; E87.6 Hypokalemia; D69.6 Thrombocytopenia, unspecified; D64.9 Anemia, unspecified; R45.1 Restlessness and agitation; R59.9 Enlarged lymph nodes, unspecified; R19.7 Diarrhea, unspecified
CPT/HCPCS: C1751; C1758; C9113; G0479; G0480; G8987-GO-CJ; G8988-GO-CI; J0610; J0692; J1200; J1940; J2060; J2270; J2505; J2997; J3010; J3370; J3411; J3475; J3480; J7030; J7040; J7050; P9040; P9045; P9047